=== PATIENT | female | born 1965 | race Caucasian/White ===

== ENCOUNTER 2017-01-01 09:41 | Inpatient (IN) | payer BC ==
[~2017-01-01] VITALS: Ht 157.5 cm; Wt 76.7 kg
[2017-01-01 11:15] LABS: BASOPHIL % 0.1 % (0-2); PLATELET COUNT 191 x10^3mcL (130-400)
[2017-01-01 11:29] LABS: RED CELL DISTRIBUTION WIDTH 27.9 % (11.5-14.5)
[2017-01-01 11:39] LABS: UA SPECIFIC GRAVITY 1.015 (1.005-1.035); microscopic required? YES; urine erythrocyte TRACE (NEGATIVE)
[2017-01-01 11:45] LABS: CALCIUM 8.8 mg/dL (8.5-10.1); CARBON DIOXIDE 27.5 mmol/L (21-32); CHLORIDE SERUM 101 mmol/L (98-107); CREATININE SERUM 0.7 mg/dL (0.6-1.0); GFR1 > 60 mL/min; GLUCOSE SERUM 124 mg/dL (74-106); POTASSIUM SERUM 3.5 mmol/L (3.5-5.1); SODIUM SERUM 135 mmol/L (136-145)
[2017-01-01 11:49] LABS: ALBUMIN 3.4 g/dL (3.4-5.0); ALKALINE PHOSPHATASE 113 U/L (46-116); ALT/SGPT 37 U/L (14-59); AST/SGOT 30 U/L (15-37); BILIRUBIN TOTAL 0.83 mg/dL (0.20-1.00); LIPASE 78 IU/L (73-393); TOTAL PROTEIN, SERUM 7.4 g/dL (6.4-8.2)
[2017-01-01 12:08] LABS: rbc morphology (normal/abnorm) ABNORMAL (NORMAL)
[2017-01-01 13:25] VITALS: BP 118/68
[2017-01-01 13:37] LABS: T3 TOTAL 0.9 ng/mL
[2017-01-01 13:49] LABS: CHOLESTEROL/HDL RATIO 3.3; PHOSPHOROUS 2.9 mg/dL (2.5-4.9)
[2017-01-01 14:05] LABS: AMPHETAMINE QUAL UR NONE DETECTED (NEG <=1000)
[2017-01-01 14:58] LABS: FREE T4 1.46 ng/dL (0.76-1.46); T4(THYROXINE) 10.6 ug/dL (4.7-13.3)
[2017-01-01 21:37] VITALS: BP 107/64
[2017-01-02 06:10] LABS: BASOPHIL % 0.4 % (0-2); PLATELET COUNT 148 x10^3mcL (130-400)
[2017-01-02 06:24] VITALS: BP 112/58
[2017-01-02 06:29] LABS: CALCIUM 7.7 mg/dL (8.5-10.1); CARBON DIOXIDE 27.3 mmol/L (21-32); CHLORIDE SERUM 106 mmol/L (98-107); CREATININE SERUM 0.6 mg/dL (0.6-1.0); GFR1 > 60 mL/min; GLUCOSE SERUM 85 mg/dL (74-106); POTASSIUM SERUM 3.5 mmol/L (3.5-5.1); SODIUM SERUM 140 mmol/L (136-145)
[2017-01-02 07:46] LABS: RED CELL DISTRIBUTION WIDTH 27.3 % (11.5-14.5)
[2017-01-02 10:04] VITALS: BP 113/66
[2017-01-02 11:58] LABS: RED BLOOD CELLS 3.95 M/mm3 (4.10-5.10)
[2017-01-02 12:09] LABS: IRON 57 ug/dL (50-170); TOTAL IRON BINDING CAPACITY 246 ug/dL (250-450)
[2017-01-02 13:46] VITALS: BP 128/76
[2017-01-02 17:07] VITALS: BP 122/76
[2017-01-03 05:44] VITALS: BP 108/61
[2017-01-03 06:14] LABS: BASOPHIL % 0.4 % (0-2); PLATELET COUNT 156 x10^3mcL (130-400)
[2017-01-03 06:19] LABS: RED CELL DISTRIBUTION WIDTH 27.5 % (11.5-14.5)
[2017-01-03 08:25] LABS: rbc morphology (normal/abnorm) ABNORMAL (NORMAL)
[2017-01-03 09:40] VITALS: BP 118/66
[2017-01-03 13:20] VITALS: BP 116/68
[2017-01-03 17:10] VITALS: BP 145/89
[2017-01-03] MEDS ORDERED: LAC PO (19:29)
[2017-01-03] MEDS ORDERED: FLA500 PO (19:29)
[2017-01-03] MEDS ORDERED: ZOFRAN8 MG PO (19:30)
[2017-01-03] MEDS ORDERED: NORCO1 TA2 PO (19:31)
[2017-01-03] MEDS ORDERED: COLACE100 MG PO (19:58)
[2017-01-03 20:16] VITALS: BP 145/89
== END 2017-01-03 20:45 | disposition home or self-care (01) | DRG 392 ==
LOC: ED 09:41 → DU 12:06
PROVIDERS: Emergency Medicine; ADMIT Family Medicine
DX: K52.9 Noninfective gastroenteritis and colitis, unspecified (principal); D68.69 Other thrombophilia; E87.0 Hyperosmolality and hypernatremia; E11.65 Type 2 diabetes mellitus with hyperglycemia; Z98.890 Other specified postprocedural states; Z90.49 Acquired absence of other specified parts of digestive tract; Z83.3 Family history of diabetes mellitus; Z82.5 Family history of asthma and other chronic lower respiratory diseases; Z98.49 Cataract extraction status, unspecified eye
CPT/HCPCS: 82962; 83880; 84439; J2270; J2405; J7030; J7512; Q0092

== ENCOUNTER 2017-01-10 23:55 | Emergency (ER) | payer BC ==
[~2017-01-10 23:55] MED LIST: COLACE100 MG PO; FLA500 PO; LAC PO; NORCO1 TA2 PO; ZOFRAN8 MG PO
[2017-01-11 01:22] LABS: BASOPHIL % 0.6 % (0-2); PLATELET COUNT 228 x10^3mcL (130-400)
[2017-01-11 01:27] LABS: CALCIUM 8.4 mg/dL (8.5-10.1); CARBON DIOXIDE 27.6 mmol/L (21-32); CHLORIDE SERUM 106 mmol/L (98-107); CREATININE SERUM 0.8 mg/dL (0.6-1.0); GFR1 > 60 mL/min; GLUCOSE SERUM 106 mg/dL (74-106); SODIUM SERUM 139 mmol/L (136-145)
[2017-01-11 01:32] LABS: ALBUMIN 3.4 g/dL (3.4-5.0); ALKALINE PHOSPHATASE 89 U/L (46-116); ALT/SGPT 24 U/L (14-59); AST/SGOT 31 U/L (15-37); BILIRUBIN TOTAL 0.26 mg/dL (0.20-1.00)
[2017-01-11 04:12] VITALS: BP 138/77
== END 2017-01-11 04:23 | disposition home or self-care (01) ==
LOC: ED 23:55
PROVIDERS: Emergency Medicine
DX: K59.00 Constipation, unspecified (principal)
CPT/HCPCS: 36415